=== PATIENT | female | born 1980 | race Caucasian/White ===

== ENCOUNTER 2019-03-04 09:40 | Day surgery (SDC) | payer MEDICARE ==
[2019-03-02 11:02] LABS: HEMATOCRIT 40.9 % (36.0-48.0); HEMOGLOBIN 12.5 g/dL (12-16); MCH 27.4 pg (26.0-34.0); MCHC 30.6 g/dL (31.0-37.0); MCV 89.7 fL (80.0-100.0); MEAN PLATELET VOLUME 9.7 fL (7.4-10.4); RBC 4.56 10x6/uL (4.00-5.40); RDW 17.1 % (11.5-14.5); WBC 9.5 10x3/uL (4.8-10.8)
[2019-03-02 11:12] LABS: APTT 28.5 SECONDS (22.8-39.4); INR 0.98 (0.85-1.17); PROTIME 12.5 SECONDS (11.6-15.0)
[2019-03-02 11:16] LABS: ALKALINE PHOSPHATASE 130 U/L (46-116); ALT (SGPT) 25 U/L (10-68); BILIRUBIN - TOTAL 0.24 mg/dL (0.2-1.3); CALC OSMOLALITY 276 mosm/kg (275-300); CALCIUM 8.2 mg/dL (8.5-10.1); CHLORIDE - SERUM 103 mmol/L (98-107); CREATININE - SERUM 0.8 mg/dL (0.6-1.3); GLUCOSE 103 mg/dL (74-106); POTASSIUM - SERUM 3.7 mmol/L (3.5-5.1); SODIUM 139 mmol/L (136-145); UREA NITROGEN 11 mg/dL (7-18); eGFR NON AFRICAN AMERICAN 84 mL/min (90-120)
[~2019-03-04] VITALS: Ht 157.5 cm; Wt 104.3 kg
--- NOTE | ~2019-03-04 | OP ---
PATIENT NAME: CAMRYN BAINS MEDICAL RECORD: [id number] :76 LOCATION:[facility] ADMISSION DATE: SURGEON: DENNIS WEBSTER DATE OF OPERATION: 03/04/2019 SURGEON: Dennis Webster DPM PREOPERATIVE DIAGNOSIS: Hallux abductovalgus deformity, left foot. POSTOPERATIVE DIAGNOSIS: Hallux abductovalgus deformity, left foot. PROCEDURE: Pan osteotomy with ostectomy of first metatarsal head, all left foot. ANESTHESIA: Local with monitored anesthesia care. HEMOSTASIS: Pneumatic ankle tourniquet inflated to 250 mmHg. ESTIMATED BLOOD LOSS: Minimal. MATERIALS: One CrowdTorch 9 mm Quick Staple. INJECTABLES: A 15 cc of 0.5% bupivacaine plain. The patient has longstanding history of pain associated with a bunion deformity. We have discussed with her the proposed procedure, risks and benefits were reviewed. Complications were discussed. All questions were answered. She was appropriately consented for the above-mentioned procedure. DESCRIPTION OF PROCEDURE: The patient was brought in the operating room and placed on the operating room table in a supine position. A timeout was called with Dr. Webster, who identified the patient, the surgical site, and the surgery to be performed. Once appropriate anesthesia was obtained, the foot was prepped and draped in the usual aseptic manner. The pneumatic ankle tourniquet was inflated to 250 mmHg on the well-padded left ankle. Attention was directed to the dorsal aspect of the first metatarsophalangeal joint where a 6 cm linear incision was made. This incision was carried deep to soft tissue with care being taken to retract all vital neurovascular structures. All bleeders were cauterized along the way. Through this incision, the first intermetatarsal space was entered utilizing both sharp and blunt dissection. The conjoined tendon of the adductor hallucis tendon was identified at the base of the proximal phalanx. It was sharply transected at this level. Attention was then directed further proximally to the level of the fibular sesamoidal ligament. This was isolated and sharply transected. Attention was then directed to the dorsal aspect of the first metatarsophalangeal joint where the periosteum was reflected from the head of the first metatarsal and the base of the proximal phalanx, thus revealing the hypertrophied medial eminence. Next, utilizing the sagittal saw, the hypertrophied medial eminence of the first metatarsal was resected. All rough bone edges were smoothed with a rasp. The attention was then directed to the proximal phalanx of the great toe, where a V-shaped osteotomy with the apex oriented laterally was created. The wedge of bone was removed from the osteotomy. The osteotomy was reduced and utilizing OPERATIVE REPORT [id number] CAMRYN BAINS's recommended technique, one 9-mm Quick Staple was placed across the osteotomy. The foot was then loaded and the deformity was noted to be reduced. The surgical site was then irrigated with copious amounts of normal sterile saline via bulb syringe. The periosteum was reapproximated and coapted using 3-0 Vicryl. The subQ was reapproximated and coapted using 4-0 Vicryl and the skin was reapproximated and coapted with 4-0 nylon. A dressing consisting of Adaptic, 4 x 4s, Kerlix and Coban was applied to the left foot. The pneumatic ankle tourniquet was deflated and cap refill time was immediate to all digits of the left foot. The patient tolerated the procedure and anesthesia well. She left the operating room with vital signs stable. The patient was discharged home with instructions to ice and elevate the left foot. She was dispensed a boot to further help offload the area. She was provided with prescriptions for [place] 7.5/325, Phenergan 25 mg, and ibuprofen 800 mg. There were no complications with this procedure. She will follow up with me in 1 week. 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
[~2019-03-04 09:40] MED LIST: ALBUTEROL SULF8.5 GM INH; BACLOFEN10 MG PO; FLUTICASONE PRO16 GM NASAL; LISINOPRIL10 MG PO; NEURONTIN600 MG PO; OMEPRAZOLE20 M1 PO; ONDANSETRON ODT8 MG PO; REXULTI1 MG PO; VALIUM5 MG PO
[2019-03-04] MEDS ORDERED: VENTOLIN INH (10:09)
[2019-03-04] MEDS ORDERED: PENLAC6.6 ML TOPICAL (10:14)
[2019-03-04 10:20] VITALS: BP 119/78; Ht 157.5 cm; Wt 104.3 kg
[2019-03-04 10:39] LABS: HCG URINE NEGATIVE (NEGATIVE)
--- NOTE | 2019-03-04 11:03 | NUR ---
DR. GARRISON NOTIFIED AND REVIEWED PT'S BEHAVIOR AND ASSESSMENT RESULTS. PT IS A LOW RISK PER DR. GARRISON. DR. GARRISON STATED TO GIVE RESOURCES TO PT AT THE TIME OF DISCHARGE. NO FURTHER ORDERS AT THIS TIME. RESOURCES REVIEWED WITH PT AND SHE VERBALIZED UNDERSTANDING.
[2019-03-04] MEDS ORDERED: HYDROCODON-ACE1 EAC2 PO (14:18)
[2019-03-04] MEDS ORDERED: PHENERGAN25 M1 PO (14:18)
[2019-03-04] MEDS ORDERED: IBUPROFEN800 MG PO (14:19)
--- NOTE | 2019-03-04 15:02 | NUR ---
DISCHARGE INSTRUCTIONS REVIEWED WITH PATIENT AND SPOUSE, DISCHARGED HOME VIA WHEELCHAIR TO PRIVATE VEHICLE WITH SPOUSE
== END 2019-03-04 15:02 | disposition home or self-care (01) ==
LOC: D.OPS 09:40 → D.PAN 12:00 → D.OPS 12:00
PROVIDERS: Anesthesiology; ATTEND Podiatrist
DX: M20.12 Hallux valgus (acquired), left foot (principal); M20.41 Other hammer toe(s) (acquired), right foot

== ENCOUNTER → 2019-08-17 11:58 | Outpatient (CLI) | payer MEDICARE, MEDICAID ==
[2019-03-04 10:20] VITALS: BMI 42.1
[~2019-08-17 11:58] MED LIST changes: +COLACE100 MG PO; +CYMBALTA30 MG PO; +HYDROCODON-ACE1 EAC2 PO; +IBUPROFEN800 MG PO; +MIRALAX17 GM PO; +PENLAC6.6 ML TOPICAL; +PHENERGAN25 M1 PO; +TOPAMAX50 MG PO; +VENTOLIN INH
== END | disposition home or self-care (01) ==
LOC: D.LABREF 11:58
PROVIDERS: ATTEND Internal Medicine Pulmonary Disease
DX: Z11.59 Encounter for screening for other viral diseases (principal)

== ENCOUNTER 2019-08-19 09:55 | Day surgery (SDC) | payer MEDICARE, MEDICAID ==
[~2019-08-19] VITALS: Ht 154.9 cm; Wt 106.6 kg
[2019-08-19 10:17] VITALS: BP 151/91; Ht 154.9 cm; Wt 106.6 kg
== END 2019-08-19 14:54 | disposition home or self-care (01) ==
LOC: D.OPS 09:55 → D.PAN 12:00 → D.OPS 14:54
PROVIDERS: ATTEND Podiatrist
DX: M20.11 Hallux valgus (acquired), right foot (principal); J45.909 Unspecified asthma, uncomplicated; Z72.0 Tobacco use; M79.671 Pain in right foot